=== PATIENT | female | born 1980 | race Hispanic/Latino ===

== ENCOUNTER 2016-06-22 22:02 | Emergency (ER) | payer MEDICAID ==
[~2016-06-22] VITALS: Ht 134.6 cm; Wt 68.2 kg
[2016-06-22 22:07] VITALS: BP 111/71; PULSE 124; RESP 20; O2SAT 96
--- NOTE | 2016-06-22 23:20 | ED.REPORT ---
HPI-General Illness Date of Service Jun 22, 2016 ED Provider: Kenn Squires DO Ms. Romero is a 36 y/o 8 para 7 woman at 17 weeks gestation who presents today for headache, sore throat, ear aches, body aches, cough, and upper abdominal pain for the past 4 days. No vaginal bleeding or discharge, vomiting, diarrhea, or dysuria. She presents today with her . She also has an associated fever. No influenza vaccine. No known sick exposures. No changes with the baby. [facility] has gone to [facility] where they did an initial ultrasound and confirmed her . Nursing Notes Stated Complaint: BODY ACHES, HEADACHE Chief Complaint: FLU/Cold Symptoms Nursing Notes Reviewed: Yes Allergies: Coded Allergies: No Known Allergies (Verified , 06/22/16) Uncoded Allergies: NKA (Allergy, Unknown, 09/07/03) NKDA (Allergy, Unknown, 09/07/03) No Known Allergies (Allergy, Unknown, 09/07/03) No Active Prescriptions or Reported Meds General Time Seen by MD: 23:22 Chief Complaint Flu-like illness Hx Obtained From: Patient Associated with: Reports: Abdominal pain, Chest pain (with cough and pleuritic) , Congestion, Cough, Denies: Vomiting Past Medical History Past Medical History NONE Past Surgical History Reports: , Cholecystectomy Family History Reviewed, Not relevant Smoking History Never Smoker Social History Alcohol Use: Denies alcohol use Drug Use: Denies drug use Occupation lives with boyfriend Review of Systems Full Review of Systems Constitutional: Reports: Chills, Fever, Malaise, Weakness - generalized Ears / Nose / Throat: Reports: Earache bilateral, Nasal congestion, Sore throat Respiratory: Reports: Pleuritic pain Cardiovascular: Reports: Chest pain (with cough), Denies: Edema GI: Reports: Abdominal pain, Denies: Diarrhea, Vomiting Female: Reports: , Denies: Dysuria, Vaginal bleeding - abnl, Vaginal discharge Musculoskeletal: Denies: Back pain Hematologic: Denies Bleeding Physical Exam Vital Signs Vital Signs Date Time Temp Pulse Resp B/P Pulse Ox O2 Delivery O2 Flow Rate FiO2 06/23/16 01:25 110 16 100/61 95 Room Air 06/23/16 00:08 111 18 100 Room Air 06/22/16 22:07 38.0 124 20 111/71 96 Room Air Initial VS: Reviewed General/Constitutional: Well-developed, Well-nourished Head / Eyes: Atraumatic, Normocephalic, PERRL ENT: Mucous membranes moist, Conjunctiva normal, No scleral icterus Respiratory: Breath sounds normal, Clear to auscultation, No respiratory distress Cardiovascular: Regular rate & rhythm, Heart sounds normal, Intact distal pulses Abdomen / GI: Soft, No guarding, No rebound Extremities: No swelling, No tenderness Skin: Warm, Dry, No cyanosis Neurologic: Alert, Oriented, Nonfocal Psychiatric: Mood/affect normal, Behavior normal, Normal thought content ENT: Airway patent, Mucous membranes moist, Tympanic membs NL Pharynx / Tonsils / Uvula: Positive: Pharyngeal erythema (mild) Neck: Supple, No meningismus, Full range of motion, No adenopathy, No masses Neck / Muscle Tenderness: Positive: Submandibular L... (Mild), Submandibular R... (Mild) Abdomen: Soft, No guarding, No rebound, BS normoactive Tenderness/Guarding/Rebound: Positive: Tender LUQ... (Mild), Tender RUQ... ( Mild) Bowel Sounds / Distention: Positive: Distention mild () Interpretation & Diagnostics Interpretation & Diagnostics: Rapid influenza A is positive Lab Results Interpretation Test 06/23/16 00:05 06/23/16 00:15 Urine Color Dark yellow (YELLOW) Urine Appearance Clear (CLEAR,HAZY) Urine pH 6.0 (5.0-8.0) Urine Specific [place] 1.025 (1.003-1.035) Urine Protein Negativemg/dL (NEG,TRACE) Urine Glucose (UA) Negativemg/dL (NEGATIVE) Urine Ketones >80mg/dL (NEGATIVE) Urine Occult Blood Negative (NEGATIVE) Urine Nitrite Negative (NEGATIVE) Urine Bilirubin Negative (NEGATIVE) Urine Urobilinogen Normalmg/dL (NORMAL) Urine Leukocyte Esterase Negative (NEGATIVE) Urine RBC 0-2/hpf (0-2) Urine WBC 0-5/hpf (0-5) Urine Epithelial Cells Many/hpf (NONE-MOD) Urine Crystals None seen (NONE SEEN) Urine Bacteria Few/hpf (NONE-FEW) Urine Hyaline Casts None/lpf (NONE) Urine Granular Casts None seen (NONE SEEN) Urine Waxy Casts None seen (NONE SEEN) Urine Red Blood Cell Casts None seen (NONE SEEN) Urine White Blood Cell Casts None seen (NONE SEEN) Urine Mucus Present (None Seen) Urine Trichomonas None seen (NONE SEEN) Urine Yeast None (NONE SEEN) Urine Culture Reflexed Not indicated Hold Urine Received (Received) Procedures Procedure Notes: Bedside US done and showed heartbeat and movement Re-Eval/Medical Decision Med Decision/Clinical Course 1. cough, sore throat, and body aches and abdominal pain -Pt is influenza A positive -Pt is febrile initially, which resolved after Tylenol given in the ED. -UA is not concerning for a UTI but has positive ketones and pt is likely dehydrated. Pt received 1 L of normal saline in the ED. -She does not have an elevated BP or leg edema -Pt has history of cholecystectomy -Pt has had symptoms for 4 days so she is not eligible for Tamiflu -Bedside US showed heartbeat and movement Time of Eval: 01:00 Patient Status: Condition improved Re-Evaluation/Progress Note: Pt reports that her abdominal pain has resolved but her sore throat persists. DDx includes but not limited to: influenza, pneumonia, bronchitis, UTI, viral syndrome, pharyngitis, meningitis, pulmonary embolism, HELLP syndrome Discharge & Departure Primary Impression: Influenza due to influenza A virus Additional Impression: Dehydration Disposition: Home Discharge Condition All VS Reviewed: Yes Condition: Stable Patient Instructions: Dehydration (ED), Influenza (ED) Additional Instructions: You tested positive for influenza A today in the emergency department. Your urine test shows that you are dehydrated. The ultrasound of your baby was reassuring. Get plenty of rest and drink a lot of water. You should drink at least 64 ounces of water per day. You can take Tylenol or ibuprofen as needed for pain and it is available over- the-counter at the pharmacy. You can alternate the Tylenol and ibuprofen. Start with Tylenol, and if it does not help with the pain, then 3 hours after taking the Tylenol you can take ibuprofen. Take both according to the directions on the packages. Ibuprofen should be taken with a meal. Do not take more than 3,000 mg of Tylenol in a day. Do not take ibuprofen for more than 3 days. Follow-up with your [facility] within a week. Return to the emergency department if you have trouble breathing, pain in her legs, swelling in her legs, your abdominal pain worsens, or you have any vaginal bleeding. Referrals: Chris Mcclure MD (PCP) 1 Week Attending Statement I saw and evaluated this patient with Dr. Toure and I agree with the documentation as above. With influenza A we elected not to treat with Tamiflu because her symptoms have been ongoing for 48 hours. Symptomatically treatment instructions given. Given that she is in her second trimester of it would be safe to use ibuprofen temporarily if Tylenol does not provide the needed relief and this was communicated to the patient. copies to: Chris Mcclure MD, Marissa L DO Jun 22, 2016 23:20 Kenn Squires DO Jun 24, 2016 08:45
[2016-06-22] MEDS ORDERED: Acetaminophen IV 1,000 MG in IV Premix 1 EACH IV ONE (23:50)
[2016-06-23] MEDS ORDERED: Acetaminophen 32.5 mg/mL 20 mL Liquid PO ONE
[2016-06-23] MEDS ORDERED: 0.9% Sodium Chloride 1,000 ML IV ONE (00:05)
[2016-06-23 00:08] VITALS: PULSE 111; RESP 18; O2SAT 100
[2016-06-23 00:46] LABS: APPEARANCE,URINE CLEAR (CLEAR,HAZY); COLOR,URINE DARK YELLOW (YELLOW); OCCULT BLOOD,URINE NEGATIVE (NEGATIVE)
[2016-06-23 00:47] LABS: UROBILINOGEN,URINE NORMAL (NORMAL)
[2016-06-23 01:25] VITALS: BP 100/61; PULSE 110; RESP 16; O2SAT 95
== END 2016-06-23 01:26 | disposition home or self-care (01) ==
LOC: SED 22:02
DX: O99.512 Diseases of the respiratory system complicating pregnancy, second trimester (principal); J10.89 Influenza due to other identified influenza virus with other manifestations; E86.0 Dehydration; Z90.49 Acquired absence of other specified parts of digestive tract; Z98.890 Other specified postprocedural states; Z3A.17 17 weeks gestation of pregnancy
CPT/HCPCS: 81000; 87804; 96360; 99285; J7030

== ENCOUNTER 2016-11-15 08:20 | Inpatient (IN) | payer MEDICAID ==
[~2016-11-15] VITALS: Ht 144.8 cm; Wt 76.2 kg
[2016-11-15] MEDS ORDERED: Lactated Ringer's 1,000 ML IV PRN (09:09)
[2016-11-15] MEDS ORDERED: Carboprost 250 mCg/mL Inj IM PRN ×3 (09:10→11:20)
[2016-11-15] MEDS ORDERED: Sodium Chloride LOK Flush 10 mL Syringe IVFLUSH PRN ×2 (09:10→11:20)
[2016-11-15] MEDS ORDERED: Hemorrhage Kit, Post Partum XX ONE ×3 (09:10→11:20)
[2016-11-15] MEDS ORDERED: Oxytocin 10 Unit/mL Inj IM PRN ×3 (09:10→11:20)
[2016-11-15] MEDS ORDERED: Oxytocin 30 Units/500 mL LR 30 UNITS in IV Premix 1 EACH IV PRN ×2 (09:10→11:20)
[2016-11-15] MEDS ORDERED: Methylergonovine 0.2 mg/mL Inj IM PRN ×3 (09:10→11:20)
[2016-11-15] MEDS ORDERED: Lactated Ringer's 1,000 ML IV SCH (09:16)
[2016-11-15] MEDS ORDERED: CeFAZolin Inj 2 GM in IV Premix 1 EACH IV SCH (09:20)
[2016-11-15] MEDS ORDERED: Sodium Citrate-Citric Acid 15 mL Solution PO SCH (09:20)
[2016-11-15 09:27] LABS: Mean Corpuscular Hemoglobin 26.7 pg (27.0-35.0); Mean Corpuscular Volume 79.2 fL (81-100)
[2016-11-15] MEDS ORDERED: CeFAZolin 2 Gm/50 mL D5W Duplex Bag IV ONE (09:50)
--- NOTE | 2016-11-15 09:57 | PCM.HPANE ---
Patient Data Date of Service: Nov 15, 2016 Surgeon Admitting Provider:Priscilla Pedroza MD Attending Provider:Priscilla Pedroza MD Primary Care Physician:Priscilla Pedroza MD Other Provider:Allen Gregory Anesthesia Reason for Visit C/S C/S Ht/WT & BMI Body Mass Index Allergies Coded Allergies: No Known Allergies (Verified , 11/15/16) Uncoded Allergies: NKA (Allergy, Unknown, 09/07/03) NKDA (Allergy, Unknown, 09/07/03) No Known Allergies (Allergy, Unknown, 09/07/03) Past Anesthesia History Anesthesia History: Denies:: Abnormal Airway Diabetes History Hx Diabetes?: No Medications No Active Prescriptions or Reported Meds History History of ENT Problems?: No HEENT History: Denies:: Abnormal Airway Denture Type: None Teeth Condition: Within Normal Limits Hx of Heart Problems?: No Cardiovascular History: Denies:: Congestive Heart Failure Hypertension Hx of Respiratory Problem?: No Respiratory History: Denies:: Asthma Tuberculosis Hx Neurologic Problems?: No Hx of GI Problems?: No Hx of Problems?: No Other History/Comment hx previa and prepartum hemorrhage previous Hx Musculoskeletal Problems?: No Hx Surgeries?: No (C-sec x2, geetha) Hx Diabetes: No Hx Alcohol Use: NoHx Substance Use: No Smoking Status: Never Smoker Have You Smoked inLast 12 mo: No Stop/Bang Risk Assessment Category Category 1A: Patient has history of documented sleep apnea, and HAS NOT received any narcotic, sedative or anesthesia administration during this stay. Category 1B: Patient has history of documented sleep apnea, and HAS received any narcotic , sedative or anesthesia administration during this stay Category 2: Patient has SUSPECTED Obstructive Sleep Apnea, and HAS received any narcotic , sedative or anesthesia administration during this stay. Category 3: Patient has SUSPECTED Obstructive Sleep Apnea and HAS NOT received narcotic, sedative or anesthesia administration during this stay. Category 4: Outpatient in Procedural Areas with known sleep apnea or who screen positive for High Risk via the STOP/BANG questionnaire. Exam Exam Vital Signs 109/62 80 afebrile 14 97% General Appearance: Alert, Oriented X3 HEENT/AIRWAY: MP 2 Lungs: Clear to Auscultation Heart: Exam Unremarkable, Regular Rate/Rhythm Meds/Labs/Diagnostics Labs Test 6/23/17 09:00 White Blood Count 11.2th/mm3 (3.8-10.1) Red Blood Count 4.23mil/mm3 (3.90-5.20) Hemoglobin 11.3g/dL (12.0-15.6) Hematocrit 33.5% (35.0-46.0) Mean Corpuscular Volume 79.2fL (81-100) Mean Corpuscular Hemoglobin 26.7pg (27.0-35.0) Mean Corpuscular Hemoglobin Concent 33.7% (32.0-37.0) Red Cell Distribution Width 15.3% (12.3-15.4) Platelet Count 173bil/L (150-400) Plan Impression Patient chart reviewed, patient interviewed and anesthestic plan with risks, benefits, and alternatives discussed, and informed consent obtained. NPO per Anesth. Guidelines: Yes ASA Physical Status: ASA2 Mod Systemic Disease Anesthetic Plan: SAB Bene/Risks/Altern/Consents: Yes HP Complete Prior to Induction: Yes Rico Barr MD Nov 15, 2016 09:57
[2016-11-15] MEDS ORDERED: Phenylephrine/NS-PF 100 mCg/mL 5 mL Syringe IVPUSH PRN (10:00)
[2016-11-15] MEDS ORDERED: HYDROmorphone 1 mg/mL Inj IVPUSH PRN (10:00)
[2016-11-15] MEDS ORDERED: Atropine 0.4 mg/mL Inj IV PRN (10:00)
[2016-11-15] MEDS ORDERED: fentaNYL-PF 50 mCg/mL 2 mL Inj IVPUSH PRN (10:00)
[2016-11-15] MEDS ORDERED: EPHEDrine Sulfate 50 mg/mL Inj IVPUSH PRN (10:00)
[2016-11-15] MEDS ORDERED: Ondansetron 2 mg/mL 2 mL Inj IVPUSH PRN (10:00)
[2016-11-15] MEDS ORDERED: Morphine PF 1 mg/mL 10 mL Inj INTRATHEC ONE (10:00)
[2016-11-15] MEDS ORDERED: LANOlin HPA 7 Gm Ointment TOPICAL PRN (11:20)
[2016-11-15] MEDS ORDERED: diphenhydrAMINE 50 mg Capsule PO PRN (11:20)
[2016-11-15] MEDS ORDERED: hydrOXYzine Pamoate 25 mg Capsule PO PRN (11:20)
[2016-11-15] MEDS: Lactated Ringer's 1,000 ML IV SCH (12:33)
--- NOTE | 2016-11-15 13:09 | HP ---
[address] [address] HISTORY AND PHYSICAL PATIENT: GARRET ZAVALA : 1980 MR#: [id number] ADMIT: 11/15/2016 JOB ID: [id number] CHIEF COMPLAINT: Contractions and rupture of membranes. HISTORY OF PRESENT ILLNESS: This is a 36-year-old, G8, P7-0-0-7 female who is presenting at 38 plus 3 weeks gestational age, complaining of rupture of membranes and contractions. Her is complicated by grand multiparity, advanced maternal age, and history of section x2. Her 1st was due to breech presentation and the 2nd was a for low-lying placenta and large presenting vessel. It was done at 33 weeks and there was noted to be a hemorrhage of 1500 cc with a thin uterine window at that time. PAST MEDICAL HISTORY: Denies. PAST SURGICAL HISTORY: section x2, laparoscopic cholecystectomy. OBSTETRIC HISTORY: She has had five vaginal deliveries, two sections as noted above. Her vaginal deliveries were uncomplicated. Largest baby was a 8 pounds. SOCIAL HISTORY: She denies any tobacco, alcohol, or drug use. FAMILY HISTORY: Noncontributory. MEDICATIONS: Include iron and ferrous sulfate. ALLERGIES: REGLAN which causes muscle cramps. LABORATORY DATA: Shows a blood type of O positive, antibody screen negative, rubella immune, varicella immune, hep B surface antigen negative, RPR nonreactive, HIV negative, and GBS is unknown. It was collected at her last visit but has not yet been resulted. PHYSICAL EXAMINATION: Objectively, at the time of admission, her blood pressure is 109/63, her heart rate is 88. Her respiratory rate is 16. Her temperature is 98.6. In general, she is awake, alert, oriented, in no acute distress. Her heart shows regular rate and rhythm. Her lungs are clear to auscultation bilaterally. Her abdomen is soft. It is nontender and nondistended. Her extremities showed trace lower extremity edema. She was checked by the nurse and noted to be 1.5 cm dilated. She also had a positive ROM plus test on labor and delivery. ASSESSMENT AND PLAN: This is a 36-year-old, -0-0-7 female presenting with rupture of membranes and kesha at the time of admission. She has a history of section x2 with strong recommendation to avoid laboring in the future, with a hemorrhage in her previous . At this point in time, would recommend proceeding with a repeat section. Ancef will be given preoperatively and we will proceed with a repeat low-transverse section. [place]
--- NOTE | 2016-11-15 14:21 | OP ---
[address] [address] OPERATIVE REPORT PATIENT: GARRET ZAVALA : 1980 MR#: [id number] ADMIT: 11/15/2016 JOB ID: [id number] DATE OF SURGERY: 11/15/2016 PREOPERATIVE DIAGNOSIS(ES): 1. A 38 plus 4 week intrauterine with rupture of membranes. 2. History of section x2. 3. Grand multiparity. 4. Limited care. POSTOPERATIVE DIAGNOSIS(ES): 1. A 38 plus 4 week intrauterine with rupture of membranes. 2. History of section x2. 3. Grand multiparity. 4. Limited care. PROCEDURES PERFORMED: Repeat low transverse section of a liveborn male , born on November 15, 2015, at 10:42 hours, weighing 7 pounds 9 ounces or 3426 g with Apgars of 9 at one minute, 9 at give minutes. SURGEON: Priscilla Pedroza MD. RN QUALITY: Cha Dao MD, who was necessary for safe completion of this case. ANESTHESIA: Spinal with Duramorph. ESTIMATED BLOOD LOSS: 500 cc. FLUID REPLACEMENT: A liter of crystalloid. URINE OUTPUT: 100 cc of clear yellow urine. COMPLICATIONS: None apparent. FINDINGS: Live-born male , as noted above. Normal uterus, ovaries, and fallopian tubes. INDICATIONS: This is a 36-year-old, G8, P 7-0-0-7 female, who presented at 38 plus 4 weeks gestational age, complaining of spontaneous rupture of membranes and contractions. She did have a scheduled section scheduled for early next week as she had a history of two sections prior. Her 1st section was due to breech presentation. Her 2nd was due to placenta previa with a low-lying placenta with a prominent vessel and was completed at 33 weeks with a large hemorrhage of 1500 cc. She also had limited care in this and was advanced maternal age. lab data showed a blood type of O-positive, antibody screen negative. She was rubella immune. Varicella immune. Hep B surface antigen negative, RPR nonreactive, HIV negative, and GBS unknown. An AmniSure test was positive. At the time of admission, she was noted to be kesha painfully so she was brought back for an unscheduled repeat section. Risks, benefits, and alternatives were discussed with her prior and she elected to proceed. PROCEDURE: The patient was taken to the operating room. She was placed in dorsal supine position, with a leftward tilt, prepped and draped in the usual sterile fashion for the surgery. She was given 2 g Ancef preoperatively and SCDs were in place. Under excellent spinal anesthesia, an incision was made through her previous low-transverse incision sharply. This was brought down to the level of the rectus fascia. The fascia was then incised in the midline and dissected sharply off the underlying rectus muscle. Blunt and sharp dissection was used to separate the fascia off of the muscle and the peritoneum was then entered bluntly, and the entrance was extended bluntly as well as with electrocautery. The bladder blade was then placed. A bladder flap was created by elevating the vesicouterine peritoneum and incising and reflecting the peritoneum downward off the lower uterine segment. The bladder blade was then replaced and the lower uterine segment was noted to be very thin, approximately 2-3 mm in thickness. Uterine incision was then made revealing a moderate amount of meconium-stained amniotic fluid. This incision was extended bluntly. The bladder blade was then removed. The infant's vertex was brought to the incision and the vertex delivered atraumatically through the uterine incision. There was a nuchal cord that was delivered from around the infant's vertex. The anterior shoulder delivered easily. Posterior shoulder then delivered and the remainder of the infant was easily delivered. After a 60-second cord clamping delay, the cord was then clamped and cut and the infant was passed to the nursing team who were in attendance. Cord blood was then obtained. The placenta delivered intact spontaneously and was passed off the table. The uterus was removed from the abdominal cavity, covered with moist laps, and Pitocin was added to the IV bag to firm the uterus. The uterus was cleaned with moist lap sponge, then closed with a single locking layer of 0-Vicryl. A second imbricating layer using 0-Vicryl was then placed on top of this. Good hemostasis was noted with this. The posterior cul-de-sac was then irrigated and cleaned and the paracolic gutters were cleared of clot and debris. The uterus was then replaced into the abdominal cavity. Again hemostasis was assured and the gutters were again cleaned. The fascia was then closed with 0 Vicryl in a running nonlocking suture. Two sutures were used starting in each corner and meeting in the midline. Plain gut suture was then used to reapproximate the subcutaneous layer and the skin was then closed with 4-0 Vicryl. All sponge, needle, and instrument counts were correct. The patient tolerated this procedure well and recovered in Labor and Delivery.
[2016-11-15] MEDS ORDERED: Phenylephrine/NS-PF 100 mCg/mL 5 mL Syringe IVPUSH ONE (14:35)
[2016-11-15] MEDS ORDERED: EPHEDrine/NS 5 mg/mL 5 mL Syringe ONE (14:35)
[2016-11-15] MEDS ORDERED: Morphine PF 1 mg/mL 10 mL Inj ONE (14:35)
[2016-11-15] MEDS ORDERED: Glycopyrrolate 0.2 MG/ML 1mL Inj ONE (14:35)
[2016-11-15] MEDS ORDERED: Oxytocin 10 Unit/mL Inj ONE (14:35)
[2016-11-15] MEDS: oxyCODONE-Acetamin 5-325 mg Tablet PO PRN ×2 (16:42→20:44)
--- NOTE | 2016-11-15 17:28 | PCM.ANEP1 ---
Post Anesthesia PACU Phase 1 Assessment Date of Service: Nov 15, 2016 Vital Signs 110/70 80 36 97% 18 Anesthetic Administered: SAB Level of Alertness: Awake, talking PATEL's with Equal Strength: No Pain: Yes Pain Scale Score: 3 Nausea or Vomiting: No CV Function & Hydration Stable: Yes Airway Device: Lungs: Normal Air Movement PACU Phase 2 Assessment Complications: No Patient Instructions Provided: N/A Rico Barr MD Nov 15, 2016 17:28
[2016-11-16] MEDS: Ascorbic Acid 500 mg Tablet PO SCH (08:03)
[2016-11-16 08:45] LABS: Mean Corpuscular Hemoglobin 26.1 pg (27.0-35.0); Mean Corpuscular Volume 78.1 fL (81-100)
[2016-11-16] MEDS: oxyCODONE-Acetamin 5-325 mg Tablet PO PRN ×3 (09:30→17:55)
[2016-11-16] MEDS ORDERED: Ondansetron 2 mg/mL 2 mL Inj IVPUSH PRN (09:45)
--- NOTE | 2016-11-16 10:42 | PROG NOTE ---
[address] [address] PROGRESS NOTE PATIENT: GARRET ZAVALA : 1980 MR#: [id number] ADMIT: 11/15/2016 JOB ID: [id number] DATE: 11/16/2016 SUBJECTIVE: This is a 36-year-old female, 8, para 8, status post repeat section. This is postop day one. Patient is doing well. Pain is well-controlled. No nausea, vomiting. Tolerated diet. Giraldo catheter is still in. She did not void yet. She had a short period of time for ambulating, and she is doing well. PHYSICAL EXAMINATION: She is afebrile. Cardiac: RRR. No murmur. Pulmonary: Bilaterally clear. Blood pressure in normal range. Abdomen is soft. Uterus is well-contracted. Incision is dry and clean. Extremities: Nontender. LABORATORY DATA: Her CBC came back. White count 9.8, H and H 10.4/31.1, platelets 171. ASSESSMENT AND PLAN: A 36-year-old female, 8, para 8, status post repeat section. We will remove the Giraldo cath today. Encouraged to void. Encouraged ambulating. Regular diet. Encourage medication by p.o.
[2016-11-17] MEDS: oxyCODONE-Acetamin 5-325 mg Tablet PO PRN ×6 (00:16→23:04)
[2016-11-17] MEDS: Ascorbic Acid 500 mg Tablet PO SCH (08:18)
--- NOTE | 2016-11-17 16:49 | PROG NOTE ---
[address] [address] PROGRESS NOTE PATIENT: GARRET ZAVALA : 1980 MR#: [id number] ADMIT: 11/15/2016 JOB ID: [id number] DATE: 11/17/2016 SUBJECTIVE: She it states that she is doing well this morning. Her pain is well controlled with Percocet and ibuprofen. She is tolerating a regular diet. She does have some mild nausea at the end of the evening but no emesis. She is ambulating well on her own. Her Giraldo catheter was removed yesterday and she is voiding without difficulty. Her lochia is minimal. She has no other complaints today. She does not yet feel ready for discharge due to social issues with her preparing housing resources in [place], and she is requesting to stay until tomorrow. She is not passing any flatus yet. OBJECTIVE: Her blood pressure is 122/59, her heart rate 91, respiratory rate is 18, her temperature is 36.3. In general, she is awake, alert, oriented, in no acute distress, lying comfortably in the bed. Her heart shows regular rate and rhythm. Her lungs are clear to auscultation bilaterally. Her abdomen is soft. It is appropriately tender and nondistended. She has normoactive bowel sounds. Her incision is clean, dry, and intact with Steri-Strips present. Her extremities showed trace lower extremity edema and no calf tenderness. LABORATORY DATA: From postoperative day number one, shows a white count of 9.8, hemoglobin 10.4, platelet count of 171. ASSESSMENT AND PLAN: This is a 36-year-old, 8, para 8-0-0-8 postop day #2 following a repeat low-transverse section that occurred on the due to labor. She is doing well today. She is meeting all of her postoperative goals, however, she is not yet passing flatus and does have some mild nausea after eating. She also has some social issues that are precluding her discharge at this time and is requesting discharge home tomorrow morning. I think this is reasonable, and we will continue to observe her until postoperative day #3. She will continue on the ibuprofen and Percocet for pain relief. Ambulation has been encouraged.
[2016-11-18] MEDS: oxyCODONE-Acetamin 5-325 mg Tablet PO PRN ×4 (03:12→17:31)
--- NOTE | 2016-11-18 07:49 | PCM.DIOB ---
Obstetrical Disch Instruction Dates of Hospitalization Date of Hospital Admission Nov 15, 2016 at 08:49 Providers Admitting Physician: Priscilla Pedroza MD Primary Care Physician: Priscilla Pedroza MD Attending Physician: Priscilla Pedroza MD Discharge Diagnosis Discharge Diagnosis You had a . Problems: Diet Discharge Diet: No restrictions Activity Discharge Activity-General: Pelvic Rest for 6 weeks, Try not to overdue, Balance rest and activity, Activity as pain allows, Activity as energy allows, No lifting >15 pounds for 2 weeks, No lifting >10 pounds for 4-6 weeks Dressing and Incisional Care Dressing Care: Keep dressing clean, dry & intact, Allow Steri Stripes to fall off Hygiene: May shower, Wash incision with soap & water, DO NOT soak incision under water, NO bathtub, hot tub or whirlpool Additional Instructions Discharge Instructions Continue your vitamin. Please take the iron and vitamin c together for your anemia. Do not take more pain medication (Percocet) than is necessary -- less is better. Percocet pills have Tylenol (acetaminophen) in them at 325mg per pill. Do not take Tylenol in addition to your pain medication but should take one or the other. Do not take while driving or working. Both iron and Percocet can give you constipation so you have also been given a prescription for docusate to keep you regular. Be sure to follow up in 2 weeks and then again in 6 weeks at [facility]. Pelvic rest for 6 weeks (nothing per vagina including intercourse, tampons) If you have a fever greater than 100.4, please call [facility]. There is always someone confectionery laboratory manager to talk to. If you have an increase in bleeding, call [facility]. If you have a lot of bleeding suddenly, especially if you have symptoms of dizziness & weakness with it, get emergency help. If you start experiencing extreme depression, especially if you feel that you are a danger to yourself or your family, seek emergency help. You have been through a lot -- BE SURE TO TAKE CARE OF YOURSELF. You have been sent home with the following prescriptions: - Percocet 5/325 mg, take 1 tab every 4-6 hours as needed for pain. - Colace 100 mg twice a day as needed for constipation. - Ferrous sulfate 325 mg every day. - Vitamin C 500 mg every day. Take with iron. - Ibuprofen 800mg take 1 tab every 8 hours as needed for pain. Take with a meal. Follow-up in 2 and 6 weeks with [facility]. Follow Up Plan Follow-up Provider (F9): Priscilla Pedroza MD Follow-up appointment: Weeks (2 and 6) Call your provider for: Fever or Chills, Shortness of breath, Heavy vaginal bleeding, Heavy bleeding, Epigastric pain, Excessive constipation, Vaginal discomfort, Red painful breasts Bruna Toure DO Nov 18, 2016 07:49
[2016-11-18] MEDS ORDERED: FERR-83 PO (07:53)
[2016-11-18] MEDS ORDERED: IBUP800T28 PO (07:53)
[2016-11-18] MEDS ORDERED: OXYC1TAB24 PO (07:53)
[2016-11-18] MEDS ORDERED: DOCU-41 PO (07:53)
[2016-11-18] MEDS ORDERED: ASCO-294 PO (07:53)
[2016-11-18] MEDS: Ascorbic Acid 500 mg Tablet PO SCH (08:57)
[2016-11-18 09:54] VITALS: BP 118/66; PULSE 77; RESP 17
[2016-11-18] MEDS: Lactated Ringer's 1,000 ML IV SCH (11:19)
--- NOTE | 2016-11-19 06:51 | PCM.DC.OB ---
Obstetrical Discharge Summary Date of Service Nov 18, 2016 Date of hospital admission Nov 15, 2016 at 08:49 Date of Discharge: Nov 18, 2016 Providers Admitting Physician: Priscilla Pedroza MD Primary Care Physician: Priscilla Pedroza MD Attending Physician: Priscilla Pedroza MD Diagnosis at Time of Discharge 36-year-old 8, para 8-0-0-8 status post repeat low-transverse section History of section x2 Grand multiparity Limited care Problems: Invasive procedures repeat low-transverse section Date of Procedure: Nov 15, 2016 Brief History and Physical: From the history and physical performed by Dr. Pedroza on 11/15/2016: This is a 36-year-old, G8, P7-0-0-7 female who is presenting at 38 plus 3 weeks gestational age, complaining of rupture of membranes and contractions. Her is complicated by grand multiparity, advanced maternal age, and history of section x2. Her 1st was due to breech presentation and the 2nd was a for low-lying placenta and large presenting vessel. It was done at 33 weeks and there was noted to be a hemorrhage of 1500 cc with a thin uterine window at that time. Hospital Course: 36-year-old 8, para 8-0-0-8 status post repeat low-transverse section - She also had limited care in this and advanced maternal age. At the time of admission, she was noted to be kesha painfully so she was brought back for an unscheduled repeat section. - She had a liveborn male infant, born on November 15, 2015, at 10:42 hours, weighing 7 pounds 9 ounces or 3426 g with Apgars of 9 at one minute, 9 at five minutes. - Patient was discharged on post-operative, post- day 3. She no longer had nausea and started to pass flatus. She was eating and drinking well. She was urinating without issues. Her incisional pain was well controlled. She was ambulating independently. Her vital signs were stable. On exam, her heart was a regular rate and rhythm with no murmurs, rubs, or gallops. Lungs were clear to auscultation bilaterally. Her uterus was firm. Her incisional site was clean, dry, and intact without any surrounding erythema, edema, warmth, or drainage. Her bilateral feet had trace edema and her legs were not tender. Ascorbate Calcium (Vitamin C) 500 Mg Tablet 500 MG PO DAILY Prescribed by: AMBERLY SENIOR DO Docusate Sodium (Colace) 100 Mg Capsule 100 MG PO BID PRN PRN For Constipation Prescribed by: AMBERLY SENIOR DO Ferrous Sulfate (Ferrous Sulfate) 325 Mg Tablet 325 MG PO DAILY Prescribed by: AMBERLY SENIOR DO Ibuprofen (Ibuprofen) 800 Mg Tablet 800 MG PO TID PRN PRN For Pain Prescribed by: AMBERLY SENIOR DO oxyCODONE-Acetaminophen 5-325 mg (oxyCODONE-Acetaminophen 5-325 mg) 1 Each Tablet 1 TAB PO Q6H PRN PRN For Pain Prescribed by: AMBERLY SENIOR DO copies to: Priscilla Pedroza MD, Marissa L DO Nov 18, 2016 08:01
== END 2016-11-18 18:15 | disposition home or self-care (01) | DRG 766 ==
LOC: FBCO 08:20 → FBC 08:49
PROVIDERS: ADMIT Obstetrics & Gynecology; ATTEND Obstetrics & Gynecology
PROC: 10D00Z1 Extraction of Products of Conception, Low, Open Approach (ICD-10-PCS; principal; 2016-11-15 10:10)
DX: O75.82 Onset (spontaneous) of labor after 37 completed weeks of gestation but before 39 completed weeks gestation, with delivery by (planned) cesarean section (principal); O34.211 Maternal care for low transverse scar from previous cesarean delivery; Z3A.38 38 weeks gestation of pregnancy; Z37.0 Single live birth; O77.0 Labor and delivery complicated by meconium in amniotic fluid